=== PATIENT | female | born 1975 | race Caucasian/White ===

== ENCOUNTER → 2018-01-26 15:22 | Outpatient (CLI) | payer OTHER, SELFPAY ==
[2018-01-26 18:16] LABS: Absolute Lymphocyte Count 1.28 X10^3/ul (0.83-4.51); Absolute Neutrophil Count 2.4 X10^3/uL (2.0-7.7); Basophil# 0.01 X10^3/uL; Basophil% 0.2 % (0-1); Eosinophil# 0.26 X10^3/uL; Hematocrit 44.5 % (37-47); Hemoglobin 14.7 g/dl (12.0-15.0); Lymphocyte # 1.28 X10^3/ul (4.0); Lymphocyte % 29.6 % (19-41); Mean Corpuscular Hgb 31.7 pg (27.0-32.0); Mean Corpuscular Volume 95.9 fL (81-99); Mean Platelet Vol. 9.8 fl (6.2-12.0); Monocyte# 0.42 X10^3/uL; Monocyte% 9.7 % (0-10); Neutrophil # 2.35 X10^3/uL (2.7-7.7); Neutrophil % 54.3 % (47-70); Platelet Count 230 K/mm3 (150-450); RBC Distribution Width CV 12.9 % (11.6-14.6); RBC Distribution Width SD 44.5 fl (35.1-43.9); Red Blood Count 4.64 M/mm3 (4.2-5.4); White Blood Count 4.3 K/mm3 (4.4-11.0)
[2018-01-26 18:19] LABS: POSITIVE COUNT NO; POSITIVE DIFFERENTIAL NO; POSITIVE MORPHOLOGY NO
[2018-01-26 18:30] LABS: Erythrocyte Sedimentation Rate 28 mm/hr (0-20)
[2018-01-26 18:48] LABS: AST(SGOT) 19 U/L (15-37); Alanine Aminotransfer ALT/SGPT 30 U/L (13-56); Albumin, Serum 3.9 g/dL (3.2-5.0); Alkaline Phosphatase 63 U/L (45-117); Anion Gap 6 (5-15); BUN 8 mg/dL (7-18); BUN/Creat Ratio 8.8 RATIO (10-20); Calcium,Total 8.8 mg/dL (8.5-10.1); Chloride 106 mmol/L (98-107); Creatinine, Serum 0.91 mg/dL (0.55-1.02); EST Glomerular Filtration Rate 72 mL/min (>60); Est Glom Filt Rate - Afr Amer 87 mL/min (>60); Globulin 3.8 g/dL (2.2-4.2); Glucose 84 mg/dL (74-106); Potassium 3.7 mmol/L (3.5-5.1); Protein, Total 7.7 g/dL (6.4-8.2); Sodium Level 138 mmol/L (136-145); Thyroid Stim Hormone (TSH) 1.99 uIU/mL (0.358-3.74)
== END ==
PROVIDERS: Family Provider Family Medicine; PCP Family Medicine; Visit Provider Family Medicine
DX: R53.81 Other malaise (principal)
CPT/HCPCS: 36415; 80053; 84443; 85025; 85652

== ENCOUNTER → 2018-10-14 15:48 | Outpatient (CLI) | payer OTHER, SELFPAY ==
--- NOTE | 2018-10-14 16:15 | RAD_ITS ---
STUDY: X-RAY CHEST REASON FOR EXAM: Female, 43 years old. Reaction to Mantoux (PPD) test TECHNIQUE: PA and lateral views of the chest. COMPARISON: None. FINDINGS: The lungs are clear and expanded. There is no demonstrated pleural abnormality. Normal size heart. Normal mediastinum and renita. Normal visualized pulmonary arteries. Normal visualized aortic arch and descending thoracic aorta. There are early degenerative changes of the visualized mid thoracic spine. Normal visualized ribs, clavicles, and shoulders. There is no demonstrated abnormality of the visualized soft tissue structures of the upper abdomen. RAD/Chest PA and Lateral IMPRESSION: No acute cardiopulmonary disease. Electronically Signed: Jose Enrique Ray MD at 17:04 EST , Service support ,
[2018-10-14 17:42] LABS: Thyroid Stim Hormone (TSH) 1.77 uIU/mL (0.358-3.74)
[2018-10-14 17:53] LABS: Rubella IgG 54.3 IU/mL
[2018-10-17 08:25] LABS: Mumps Antibody,IgG < 9.0 AU/mL (Immune >10.9); Rubeola IgG Ab > 300.0 AU/mL (Immune >29.9); V-Zoster IgG (Immunity) 863 index (Immune >165)
== END ==
PROVIDERS: Family Provider Family Medicine; PCP Family Medicine; Referring Provider Nurse Practitioner Family; Visit Provider Nurse Practitioner Family
DX: Z00.00 Encounter for general adult medical examination without abnormal findings (principal); E03.9 Hypothyroidism, unspecified
CPT/HCPCS: 36415; 71046; 84443; 86735; 86762; 86765; 86787

== ENCOUNTER → 2020-07-12 13:40 | Outpatient (CLI) | payer OTHER, SELFPAY | PROVIDERS: PCP Family Medicine; Referring Provider Family Medicine; Visit Provider Family Medicine | DX: Z20.828 Contact with and (suspected) exposure to other viral communicable diseases (principal) | CPT/HCPCS: 87635; U0003 ==

== ENCOUNTER → 2020-10-18 11:36 | Outpatient (CLI) | payer OTHER, SELFPAY ==
[2020-10-18 10:43] VITALS: BMI 32.8
[2020-10-18 11:42] LABS: Lyme Ab Screen Interpretation REF LAB
[2020-10-18 15:41] LABS: Absolute Lymphocyte Count 2.09 X10^3/uL (0.83-4.51); Absolute Neutrophil Count 2.7 X10^3/uL (2.0-7.7); Basophil# 0.02 X10^3/uL; Basophil% 0.4 % (0-1); Eosinophil# 0.15 X10^3/uL; Eosinophils% 2.8 % (0-5); Hemoglobin 13.4 g/dL (12.0-15.0); Lymphocyte # 2.09 X10^3/ul (4.0); Lymphocyte % 38.9 % (19-41); Mean Corp Hgb Conc 31.2 g/dL (32-36); Mean Corpuscular Hgb 30.2 pg (27.0-32.0); Mean Corpuscular Volume 97.1 fL (81-99); Mean Platelet Vol. 9.9 fl (6.2-12.0); Monocyte# 0.36 X10^3/uL; Monocyte% 6.7 % (0-10); NRBC Flagged by Analyzer 0 % (0-5); Neutrophil # 2.74 X10^3/uL (2.7-7.7); Platelet Count 284 K/mm3 (150-450); RBC Distribution Width CV 12.4 % (11.6-14.6); RBC Distribution Width SD 44.7 fl (35.1-43.9); Red Blood Count 4.43 M/mm3 (4.2-5.4); White Blood Count 5.4 K/mm3 (4.4-11.0)
[2020-10-18 15:56] LABS: CRP 6.09 mg/L (0.0-3.0); Rheumatoid Factor < 10.0 IU/mL (<15)
[2020-10-18 15:58] LABS: Erythrocyte Sedimentation Rate 19 mm/hr (0-20)
[2020-10-22 17:26] LABS: ANTINUCLEAR ANTIBODIES DIRECT Negative (Negative)
[2020-10-28 04:42] LABS: CCP IgG Antibodies 17 units (0-19); HLA B27 Negative (.); Lyme Scn Total Ab w/Rflx 1.07 ISR (0.00-0.90)
== END ==
LOC: MTLAB 11:39
PROVIDERS: PCP Family Medicine; Referring Provider Orthopaedic Surgery; Visit Provider Orthopaedic Surgery
DX: M25.50 Pain in unspecified joint (principal)
CPT/HCPCS: 36415; 81374; 85025; 85652; 86038; 86140; 86200; 86431; 86618

== ENCOUNTER 2020-10-23 14:54 | Outpatient (RCR) | payer OTHER, SELFPAY ==
[2020-10-18 10:43] VITALS: BMI 32.8
--- NOTE | 2020-10-24 10:16 | HP.PTEVAL ---
Patient's Visit Information FERNANDA MORALES is a 45 year old F referred to Physical Therapy by Dr. Rosa Donaldson DO with a diagnosis of RIGHT LATERAL EPICONDYLITIS. Date of Evaluation: 10/23/20 Physical Therapist: Rudy Qureshi, PT, Cert MDT, OCS - Visit Plan Frequency: 2x /Week Duration: 4 Weeks Plan: PT INTERVENTIONS US/ESTIM/CP,STM,STRETCHING WRIST EXTENSORS,STRENGTHNENING WRITS AND FOWARM - Subjective This 45 y/o female presents to physical therapy with right lateral epicondlyitis. Patient has has right elbow pain for about 1 month. Patient symptoms here incidous onset of right elboW pain. Patient developed edema along with apin. Seen DR Donaldson recommended PT and wanted to do blood work for anti-inflammatory factors. If PT doesnt help will do MRI. Pateint has pain with flexion and bending ,lifting. Pain discribed as sharp pain . Alleviating factors rest melocicam. Ice aggravetes pain. Patient denies paratheisia altough does have hand tingling.Patient c/o elbow feeling achy and fatigue. 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 Location of symptoms will refer to hand.Tried. SOCAIL: . VOCATION: RN - Pain Right Elbow Pain Intensity (Out of 10): 5 Pain Intensity Range: 10 - Objective POSTURE : WFL. NUERO: intact. PALPATION: tender lateral epicondyle,extensor. AROM:elbow flexion/extension WFL,supination/pronation WFL ,wrist Extension 70 degrees,flexion 89 degrees pain. MMT: biceps/triceps 4/5,supination/pronation,wrist extension/flexion 4-/5. 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 Goal Time Frame: 4-6 Weeks - Rehabilitation Potential Physical Therapy Diagnosis: This patient has right elbow pain with lateral epicondylitis with swelling,tenderness ,pain with motion,MMT affects strength and functional activities with ADL's and job demnads. Rehabilitation Potential: Good - Anticipated Interventions Patient/Client Instruction: Educate patient on: Condition, Plan of Care For the Purpose of:: To decrease pain, To increase ROM, To improve muscle performance and motor function, To improve ability to perform ADL's, To increase tolerance to activity/condition/position, To decrease level of supervision to perform tasks, To improve health of tissue, To decrease soft tissue restriction, To increase flexibility/ROM, To reduce risk of recurrence Therapeutic Exercise to Include: Strength training, Flexibilty training, Passive ROM, Active ROM Comment: WRIST/FORARM For the Purpose of:: To decrease pain, To improve muscle performance and motor function, To improve ability to perform ADL's, To increase tolerance to activity/condition/position, To improve ability of physical actions for home/community/work/leisure, To improve health of tissue, To decrease soft tissue restriction, To increase flexibility/ROM, To reduce risk of recurrence Comment: FOREARM For the Purpose of:: To decrease pain, To increase ROM, To improve nutrient delivery to tissue, To increase oxygenation perfusion, To improve health of tissue, To decrease soft tissue restriction, To increase flexibility/ROM TENS: Yes IF ES: Yes Thermo therapy (hot pack): Yes Ultrasound (thermal/non thermal): Yes For the Purpose of:: To decrease pain, To decrease swelling/inflammation, To improve nutrient delivery to tissue, To increase oxygenation perfusion, To improve health of tissue, To decrease soft tissue restriction Thank you for the opportunity to evaluate your patient. For Medicare and Medicare HMO plans, please review the plan of care and approve it. It will need to be FAXED BACK to us at [phone] for Medicare purposes. For Medicare only, by signing this I certify the plan of care. Please let me know if there are questions or concerns regarding this plan of care. Physician Signature: Date:
== END 2020-10-23 19:00 | disposition home or self-care (01) ==
LOC: PT 14:54
PROVIDERS: PCP Family Medicine; Referring Provider Orthopaedic Surgery; Visit Provider Orthopaedic Surgery
DX: M17.11 Unilateral primary osteoarthritis, right knee (principal)
CPT/HCPCS: 97014; 97162; G0283

== ENCOUNTER → 2021-07-30 05:35 | Outpatient (REF) | payer OTHER, SELFPAY | LOC: OLS.WCC 05:35 | PROVIDERS: PCP Family Medicine; Visit Provider Family Medicine | DX: U07.1 COVID-19 (principal) | CPT/HCPCS: 87635; U0005; U0003 ==